=== PATIENT | female | born 1955 | race Caucasian/White ===

== ENCOUNTER 2019-06-28 12:23 | Inpatient (IN) ==
--- NOTE | 2019-06-22 11:53 | Anesthesiology Consultation ---
Date of Service June 22, 2019 Assessment & Plan (1) Encounter for pre-operative examination: Chart Review Chart Review: Acceptable Risk for Surgery and Patient NOT seen in Pre Admission Testing Consults Requested none History Surgery Operation Date: 06/28/19 13:50 Proposed Procedures p Diagnostic Laparoscopic Possible removal Foreign Body, Possible Open - Sara Simms MD Height/Weight Height: 5 ft 8 in Weight: 108.862 kg Allergies Allergy/AdvReac Type Severity Reaction Status Date / Time No Known Allergies Allergy Unknown Verified 06/21/19 14:57 Medications Home Medications Medication Instructions Recorded Confirmed Last Taken aspirin 81 mg tablet,delayed 81 mg PO QAM 07/29/18 06/21/19 Unknown release calcium carbonate-vitamin D3 600 2 tab PO QAM tab 07/29/18 06/21/19 Unknown mg(1,500 mg)-400 unit chewable tablet cholecalciferol (vitamin D3) 1,000 2,000 units PO QAM tab 07/29/18 06/21/19 Unknown unit (25 mcg) tablet doxepin 10 mg capsule 10 mg PO HS cap 07/29/18 06/21/19 Unknown hydrocodone 5 mg-acetaminophen 300 1 - 2 tab PO .Q4-6H PRN tab 07/29/18 06/21/19 Unknown mg tablet promethazine 25 mg tablet 25 mg PO .Q4-6H PRN tab 07/29/18 06/21/19 Unknown gabapentin 300 mg PO HS 06/21/19 06/21/19 Unknown hyoscyamine sulfate [Levsin] 0.125 mg PO BID 06/21/19 06/21/19 Unknown lorazepam 1.5 mg PO HS PRN 06/21/19 06/21/19 Unknown venlafaxine 150 mg PO QAM 06/21/19 06/21/19 Unknown Past Medical History Medical History Osteoarthritis Restless leg syndrome (Chronic) Migraine (Chronic) Depression (Chronic) Anxiety (Chronic) Past Surgical History Surgical History H/O laparoscopy History of surgery on right wrist external H/O repair of right rotator cuff (Chronic) H/O: hysterectomy (Chronic) History of cholecystectomy (Chronic) History of appendectomy (Chronic) History of left hip replacement Hx of colonoscopy Social History Smoking Status: Never smoker Do You Dip or Chew Tobacco: No Hx Alcohol Use: Yes Alcohol type: wine alcohol intake frequency: holidays/special occasions only Hx Substance Use: No substance use type: does not use Testing Laboratory Results Laboratory Tests 04/14/18 11:48 BUN 13 Creatinine 0.95 Electrocardiogram Date: 06/16/19 Findings: + NSR @ (79) and + NSST changes
[~2019-06-28 12:23] MED LIST: CEFAZOLIN 2000MG 2,000 MG/15 ML SYR IV SCH; LR 15ML/HR IV SCH
[2019-06-28] MEDS ORDERED: PROMETHAZINE HCL 12.5 MG in SODIUM CHLORIDE 0.9% 50 ML IV PRN (13:50)
[2019-06-28] MEDS ORDERED: ePHEDrine sulfate 50 MG/ML AMP IV PRN (13:50)
[2019-06-28] MEDS ORDERED: ATROPINE SULFATE 0.1 MG/ML 10ML SYR IV PRN (13:50)
[2019-06-28] MEDS ORDERED: ONDANSETRON INJ 2 MG/ML 2 ML VIAL IV PRN (13:50)
[2019-06-28] MEDS ORDERED: CEFAZOLIN 2000MG 2,000 MG/15 ML SYR IV ONE (14:06)
--- NOTE | 2019-06-28 14:06 | History & Physical Bridge Note ---
Date of Service June 28, 2019 History & Physical Bridge Note I have examined the patient, reviewed the History & Physical and in the interval since the performance of the History & Physical I have noted the following changes of clinical significance: no changes noted
[2019-06-28] MEDS ORDERED: LIDOCAINE HCL 1% 20 ML VIAL ONE (14:11)
[2019-06-28] MEDS ORDERED: BACITRACIN OINT 15 GM TUBE ONE (14:11)
[2019-06-28] MEDS ORDERED: BUPIVACAINE 0.5 % 5 MG/1 ML MPF 30ML VIAL ONE (14:11)
[2019-06-28] MEDS ORDERED: PROPOFOL IV EMULSION 10 MG/ML 20 ML VIAL IV ONE (14:18)
[2019-06-28] MEDS ORDERED: ONDANSETRON INJ 2 MG/ML 2 ML VIAL ONE (14:18)
[2019-06-28] MEDS ORDERED: fentaNYL citrate 100 MCG/2 ML VIAL ONE (14:18)
[2019-06-28] MEDS ORDERED: GLYCOPYRROLATE 0.2 MG/ML VIAL ONE (14:18)
[2019-06-28] MEDS ORDERED: MIDAZOLAM HCL 1 MG/ML 2ML VIAL ONE (14:18)
[2019-06-28] MEDS ORDERED: DEXAMETHASONE SOD INJ 4 MG/ML VIAL ONE (14:18)
[2019-06-28] MEDS ORDERED: LIDOCAINE HCL 2% 2 ML VIAL/AMP(20MG/ML) INFIL ONE (14:18)
[2019-06-28] MEDS ORDERED: NEOSTIGMINE METHYLSULFATE 5 MG/5 ML SYR ONE (14:18)
[2019-06-28] MEDS ORDERED: HYDROmorphone INJ 2 MG/ML SYR/VIAL ONE (15:03)
[2019-06-28] MEDS ORDERED: ROCURONIUM BROMIDE 10 MG/ML 5 ML VIAL ONE ×4 (15:09→15:14)
[2019-06-28] MEDS ORDERED: VANCOMYCIN HCL 1000MG/20ML VIAL ONE (15:33)
[2019-06-28] MEDS ORDERED: KETAMINE HCL INJ 50 MG/ML 10 ML VIAL ONE (16:02)
--- NOTE | 2019-06-28 16:40 | Post Operative Brief Note ---
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
[2019-06-28] MEDS ORDERED: LABETALOL HCL IV 5 MG/ML 20ML IV ONE (17:08)
[2019-06-28] MEDS: LABETALOL HCL IV 5 MG/ML 20ML IV STA ×2 (17:10→18:56)
[2019-06-28] MEDS: fentaNYL citrate 100 MCG/2 ML VIAL IV PRN ×2 (17:13→17:22)
[2019-06-28] MEDS: HYDROmorphone INJ 1 MG/ML SYRINGE IV PRN ×2 (17:30→17:40)
--- NOTE | 2019-06-28 17:41 | Anesthesiology Progress Note ---
Date of Service June 28, 2019 Anesthesia Post Procedure Vital Signs Vital Signs: Temp Pulse Pulse Resp BP BP Pulse Ox 06/28/19 17:30 78 16 145/86 H 96 06/28/19 17:20 77 12 140/92 96 06/28/19 17:10 80 13 172/92 H 98 06/28/19 17:00 98 H 13 172/96 H 98 06/28/19 16:53 37.4 C 105 H 12 175/98 H 98 06/28/19 12:45 36.6 C 88 18 158/110 H 97 Pain Intensity Abdomen: Pain Intensity: 2 Transfer of Care Handoff Completed per policy Notes Mental Status: alert / awake / arousable Patient Amnestic to Procedure: Yes Nausea / Vomiting: adequately controlled Pain: adequately controlled Airway Patency, RR, SpO2: stable & adequate BP & HR: stable & adequate Hydration State: stable & adequate Anesthetic Complications: no major complications apparent and Pt Satisfied with anesthetic care
[2019-06-28] MEDS ORDERED: LORazepam 0.5 MG TAB PO PRN (18:29)
[2019-06-28] MEDS ORDERED: PIPERACILLIN/TAZOBACTAM 3.375 GM in DEXTROSE 5% 100 ML IV SCH (18:29)
[2019-06-28] MEDS ORDERED: HYDROmorphone INJ 1 MG/ML SYRINGE IV PRN (18:29)
[2019-06-28] MEDS ORDERED: PROMETHAZINE HCL 25 MG TAB PO PRN (18:29)
[2019-06-28] MEDS ORDERED: OXYCODONE/ACETAMINOPHEN 5mg/325mg TAB PO PRN (18:29)
[2019-06-28] MEDS ORDERED: LACTATED RINGER'S 1,000 ML IV SCH (18:29)
[2019-06-28] MEDS ORDERED: PIPERACILL/TAZOBAC CONSULT ACTIVE PRN (18:29)
[2019-06-28] MEDS ORDERED: HYDROmorphone INJ 1 MG/ML SYRINGE ONE (18:41)
[2019-06-28] MEDS ORDERED: PIPERACILLIN/TAZOBACTAM 3.375 GM in DEXTROSE 5% 100 ML IV ONE (19:00)
[2019-06-28 19:41] LABS: Creatinine Clr Calc Pharmacy 77.3 ml/min; Est GFR (African American) 72.5; Est GFR (Non-African American) 62.6
[2019-06-28] MEDS: HYDROCODONE/ACETAMOPHEN 5/325MG TAB PO PRN ×2 (20:32→21:16)
[2019-06-28] MEDS ORDERED: GABAPENTIN 300 MG CAP PO SCH (21:00)
[2019-06-28] MEDS ORDERED: DOXEPIN HCL 10 MG CAPSULE PO SCH (21:00)
[2019-06-28] MEDS: HYOSCYAMINE SULFATE 0.125 MG TAB PO SCH (21:18)
--- NOTE | 2019-06-29 01:22 | Operative Report ---
DATE OF OPERATION: 06/28/2019 PREOPERATIVE DIAGNOSIS: Abdominal foreign body. POSTOPERATIVE DIAGNOSIS: Abdominal foreign body. OPERATIONS: Attempted diagnostic laparoscopy converted to open laparotomy, removal of abdominal foreign body and PAULINA drainage x1. SURGEON: Sara Simms MD PLANNING OFFICIAL: Pamela Mcgee PA-C ANESTHESIA: General. ESTIMATED BLOOD LOSS: About 20 mL. FINDINGS: Intra-abdominal wall foreign body. Dexter drainage with abscess. Wound culture sent. COMPLICATIONS: None. INDICATIONS OF THE PROCEDURE: This is a 64-year-old female who had an open cholecystectomy done by other hospital and other surgeon 32 years ago and based on the patient has a long history of diarrhea, the patient had a CT scan diagnosis of foreign body inside the abdominal wall near the liver. The patient required to remove the foreign body. I recommended try to do a diagnostic laparoscopy first and possible open laparotomy and remove the body. I did talk to the patient about the benefits, risks and alternate procedure. I indicated the risks may include but not limited such as infection, bleeding, bile leak, abscess, sepsis, myocardial infarction, deep venous thrombosis, stroke, even or incisional hernia. The patient understands. She signed informed consent and I answered all questions. DETAILS OF PROCEDURE: We brought the patient to the Operating Room, put the patient in supine position. The patient received sequential compression devices on bilateral legs to prevent deep venous thrombosis and also the patient received 2 g Ancef I.V. for prophylactic antibiotic. The patient received general anesthesia without difficulty. The abdomen was appropriately draped in routine sterile fashion. After timeout, I injected the local anesthesia by using 1% lidocaine mixed with 0.5% Marcaine just above umbilicus and then I made a small incision just above umbilicus about 1.5 cm incision, opened fascia, opened peritoneum under direct vision, put a Jordana trocar in, connected to CO2 to create pneumoperitoneum. Flow rate is 6 L per minute. Pressure not more than 14 mmHg. Once we got a nice pneumoperitoneum, we put the camera in, looked around the abdomen which showed a significant scar on the right upper quadrant area and no way to do the laparoscopy to reach of the liver. At this moment, I decided to convert to open procedure. I removed the scope and trocar and closed the incision in fascial layer by using #1 Vicryl [id number] x2 and closed subcutaneous layer by using 2-0 Vicryl interrupted and closed skin by using 4-0 Vicryl. Then, I used the old right upper quadrant incision about 10 cm long, removed the old skin scar and opened the subcutaneous layer, reached the fascial layer, reached muscle and opened fascia and muscle and peritoneum, getting into the abdominal cavity without difficulty and then we found the patient had a foreign body on the top of right lobe of the liver and some part beneath the right lobe of the liver. Once we mobilized the foreign body, we found the patient had a Norma foreign body, the Norma was as long as about 10 cm long. With dissection when we opened the Dexter cavity, we found there was some pus come out. We did send a wound culture and did send the bacterial culture and also there was some yellow clear fluid came out most likely it is a bile leak and once we completely removed the whole Norma because there was a lot of scar around the Norma and then we used a 2-0 Vicryl to close the cavity and I decided to to put a 10 mm PAULINA drainage near the abscess area. Hemostat was obtained. Then, I used 1 g vancomycin with 1 liter saline to flush her abdominal wall. Again, hemostasis was obtained. Then, I used #1 PDS and closed the fascia with muscle layer continuous running and closed the subcutaneous layer by using 2-0 Vicryl continuous running and closed skin by using staple. Then, we put the dressing on. The patient tolerated the procedure well. All instrument, needle and sponge count correct x2 at the end of the case. The patient was transferred to recovery room in a stable condition. Specimen sent to pathology. After procedure, I did show the patient and family member the removed the Norma specimen and informed them about the procedure the patient had. They understand. I attest to the content of the Intraoperative Record and any orders documented therein. Any exceptions are noted below. JULI
[2019-06-29] MEDS ORDERED: PIPERACILLIN/TAZOBACTAM 3.375 GM in DEXTROSE 5% 100 ML IV SCH (02:00)
[2019-06-29] MEDS: HYDROCODONE/ACETAMOPHEN 5/325MG TAB PO PRN ×2 (02:50→08:39)
[2019-06-29 07:34] VITALS: BP 115/75; PULSE 68; TEMP 98.1; O2SAT 94
[2019-06-29 07:45] LABS: Hematocrit (blood only) 36.3 % (37-47); Immature Granulocytes # (auto) 0.03 K/uL (0.00-0.02); Immature Granulocytes % (auto) 0.3 %; Lymphocytes # (auto) 0.92 K/uL (1.2-3.4); Lymphocytes % (auto) 10.2 %; Mean Corpuscular Hemoglobin 28.6 pg (25-34); Mean Corpuscular Hgb Conc 33.1 g/dL (32-36); Mean Corpuscular Volume 86.6 fL (80-100); Mean Platelet Volume 9.5 fL (7.4-10.4); Monocytes # (auto) 0.66 K/uL (0.11-0.59); Monocytes % (auto) 7.3 %; Neutrophils # (auto) 7.41 K/uL (1.4-6.5); Neutrophils % (auto) 82.2 %; Platelet Count 228 K/uL (130-400); RDW Coefficient of Variation 13.3 % (11.5-14.5); RDW Standard Deviation 42.4 fL (36.4-46.3); Red Blood Count 4.19 M/uL (4.2-5.4); White Blood Count 9.02 K/uL (4.8-10.8)
[2019-06-29] MEDS: HYOSCYAMINE SULFATE 0.125 MG TAB PO SCH (08:32)
--- NOTE | 2019-06-29 08:56 | Anesthesiology Progress Note ---
Date of Service June 29, 2019 Anesthesia Post Procedure Vital Signs Vital Signs: Temp Pulse Pulse Resp BP BP Pulse Ox 06/29/19 07:34 36.7 C 68 16 115/75 94 06/29/19 02:33 36.8 C 77 16 108/73 91 06/28/19 23:08 36.8 C 73 16 125/80 92 06/28/19 21:20 36.6 C 78 18 130/79 90 06/28/19 20:17 36.6 C 81 18 125/79 95 06/28/19 19:31 36.7 C 78 18 111/75 94 06/28/19 18:54 36.5 C 81 18 130/85 93 06/28/19 18:20 36.9 C 75 16 143/86 H 92 06/28/19 18:00 79 12 135/86 96 06/28/19 17:50 36.8 C 80 13 141/88 H 95 06/28/19 17:40 74 13 135/95 95 06/28/19 17:30 78 16 145/86 H 96 06/28/19 17:20 77 12 140/92 96 06/28/19 17:10 80 13 172/92 H 98 06/28/19 17:00 98 H 13 172/96 H 98 06/28/19 16:53 37.4 C 105 H 12 175/98 H 98 06/28/19 12:45 36.6 C 88 18 158/110 H 97 Pain Intensity Abdomen: Pain Intensity: 7 Notes Mental Status: alert / awake / arousable Patient Amnestic to Procedure: Yes Nausea / Vomiting: adequately controlled Pain: improving with treatment Airway Patency, RR, SpO2: stable & adequate BP & HR: stable & adequate Hydration State: stable & adequate Anesthetic Complications: no major complications apparent
[2019-06-29] MEDS ORDERED: CALCIUM 600MG + VIT D 400 IU TAB PO SCH (09:00)
[2019-06-29] MEDS ORDERED: HYDROCODONE/ACETAMOPHEN 5/325MG TAB PO PRN (09:00)
[2019-06-29] MEDS ORDERED: CHOLECALCIFEROL 1,000 UNITS TAB PO SCH (09:00)
[2019-06-29] MEDS ORDERED: ASPIRIN 81 MG ECTAB PO SCH (09:00)
[2019-06-29] MEDS ORDERED: VENLAFAXINE HCL XR 150 MG CAPXR PO SCH (09:00)
--- NOTE | 2019-06-29 11:35 | Surgery Progress Note ---
Date of Service June 29, 2019 Assessment & Plan (1) Foreign body: POD # 1 s/p attempted diagnostic laparoscopy with conversion to exploratory laparotomy and removal of foreign body anterior to liver (retained mario drain) -vitals stable, afebrile - post op pain controlled - kesha drain with bloody serosanguienous output, 70 mls - no n/v, tolerating diet Plan: If does okay , plan to discharge home this afternoon discharge instructions will be reviewed prior to discharge Home with PO Cipro/flagyl for 7 days Rx for PO Percocet prn pain kesha drain teaching, home with kesha drain f/u surgical office in 1 week Patient re-evaluate at 1:30 pm Pain moderate but has not had any pain medication since this morning. Pain worse with deep breaths tolerated lunch ready to go home Discharge instructions reviewed f/u surgical office in 1 week kesha drain teach prior to discharge Dr. Simms has seen patient earlier today and agrees with above. Subjective pain controlled with oral pain medication pain at incision site in RUQ no chest pain/shortness of breath urinating but with slow stream tolerated regular diet for breakfast no n/v Physical Exam Constitutional: WD/WN, vitals as above + obese Respiratory: normal respiratory effort Gastrointestinal (Abdomen): Inspection/Auscultation: + abdominal surgical drain present (RUQ kesha drain with bloody serosanguienous output); abdomen not distended Percussion/Palpation: + abdomen tender (RUQ at incision site, appropriate post op) and abdomen soft; no guarding and abdomen not rigid Skin: no rashes, warm and dry + incision (Incisions covered with dry dressings, intact) Psychiatric: A+Ox3, euthymic affect Results & Data Vital Signs (Past 12 Hours) Vital Signs Temp Pulse Resp BP Pulse Ox 06/29/19 07:34 36.7 C 68 16 115/75 94 06/29/19 02:33 36.8 C 77 16 108/73 91 Laboratory Results 06/29/19 06/28/19 06/28/19 Range/Units 07:27 18:49 18:49 WBC 9.02 (4.8-10.8) K/uL RBC 4.19 L (4.2-5.4) M/uL Hgb 12.0 (12.0-16.0) g/dL Hct 36.3 L (37-47) % MCV 86.6 (80-100) fL MCH 28.6 (25-34) pg MCHC 33.1 (32-36) g/dL RDW Std Deviation 42.4 (36.4-46.3) fL RDW Coeff of Manjit 13.3 (11.5-14.5) % Plt Count 228 (130-400) K/uL MPV 9.5 (7.4-10.4) fL Immature Gran % (Auto) 0.3 % Neut % (Auto) 82.2 % Lymph % (Auto) 10.2 % [place] % (Auto) 7.3 % Eos % (Auto) 0.0 % Baso % (Auto) 0.0 % Immature Gran # (Auto) 0.03 H (0.00-0.02) K/uL Neut # (Auto) 7.41 H (1.4-6.5) K/uL Lymph # (Auto) 0.92 L (1.2-3.4) K/uL [place] # (Auto) 0.66 H (0.11-0.59) K/uL Eos # (Auto) 0.00 (0-0.5) K/uL Baso # (Auto) 0.00 (0-0.2) K/uL Creatinine 0.97 (0.6-1.2) mg/dl Est Cr Clr Drug Dosing 77.3 ml/min Est GFR ( Amer) 72.5 Est GFR (Non-Af Amer) 62.6 Hepatitis C Ab Screen Neg (Neg)
--- NOTE | 2019-06-30 15:22 | Discharge Summary ---
Date of Service June 30, 2019 Admission HPI Per Admitting Provider Patient presented to [facility] for elective outpatient diagnostic laparoscopy with possible exploratory laparotomy for retained foreign body from prior open cholecystectomy in 1986 done at another hospital. Patient has had chronic RUQ abdominal pain and diarrhea. Was evaluated by GI who ordered abdominal xray and subsequent CT scan of abdomen and pelvis which showed retained foreign body in RUQ. She was scheduled for the elective procedure with Dr. Simms. Principal Diagnosis Retained foreign body from prior open cholecystectomy in 1986 Discharge Data Allergies Allergy/AdvReac Type Severity Reaction Status Date / Time No Known Allergies Allergy Unknown Verified 06/28/19 12:57 Procedures Performed Operation Date: 06/28/19 14:05 Actual Procedures p Attempted diagnostic laparoscopy(Not Applicable) - Sara Simms MD s Open Exploratory Laparotomy with removal of foreign body(Not Applicable) - Sara Simms MD Hospital Course (1) Foreign body: Patient was taken to operating room for diagnostic laparoscopy possible exploratory laparotomy. Laparoscopy was attempted however unsuccessful as patient had extensive adhesions to the anterior abdominal wall therefore procedure was converted to open. Patient was found to have encapsulated foreign body just anterior to liver under the peritoneum. This was finely dissected with blunt and sharp dissection and proved to be retained mario drain which was encapsulated in the liver. Entire drain was able to be removed. Patient tolerated procedure well and was transferred to recovery and then to medical/surgical floor for post op care. IV fluids, IV Zosyn, IV Morhpine with PO [place] prn pain, IV Zofran prn nausea, kesha drain to bulb suction, activity as tolerated, and diet advanced. Patient was evaluated on POD # 1 , vitals stable, afebrile, post op pain moderate but controlled, minimal kesha drain output. Patient was discharged home in afternoon on POD # 1 in stable condition. Total Time Total Time Spent Total Time Spent (In Minutes): 30 Total Time Includes: Examination of the Patient, Discharge Planning and Medication Reconciliation Discharge Plan Discharge Items Patient Disposition: Home - Self-Care Reason For Visit: Foreign Body Accidentally Left During Procedure Discharge Diagnosis: same Activity: As commented below Non-emergency contact: Surgeon Call non-emergency contact if: your pain is worsening, your pain is unusual for you, your pain is concerning for you, you have a fever, your temperature is above 101, your wound has increased redness, your wound has increased drainage and your wound pain has increased Follow-up/Referrals: Audi Eden MD [Primary Care Provider] - Diet: Regular Addtl Attending Provider Instructions: No heavy lifting over 10 pounds for 6 weeks no strenuous activity, not a lot of bending over no submerging incisions underwater for at least 2 weeks (no bathing, swimming or hot tubs) No driving while taking narcotic pain medication or until you are pain free You may shower and wash hair in 3 days. Sponge bath in the meantime. Would recommend sponge bathing abdomen while you still have drain in place. May remove dressings in 3 days and change daily. Surgical matthew will be removed in office in a few weeks Drain care: Empty drain daily or as needed Record output amount and color Daily walking is encouraged to prevent blood clots from forming in your legs. Use incentive spirometer device to processor helper in deep breathing and to prevent post operative pneumonia You will be given prescription for narcotic pain medication (Percocet) as needed for moderate to severe pain. Take as directed. This medication may cause drowsiness or constipation. You may take extra strength Ibuprofen as needed for mild pain in between doses o f Percocet. You can take 600 mg of Ibuprofen every 6 hours as needed. To avoid constipation while taking narcotic pain medication, you can take OTC stool softener (Colace) daily. Drink plenty of fluids and daily walking to help prevent constipation. Follow-up in surgical office in 1 week, please call office at [phone] to change your appointment from 2 weeks to 1 week. Pending Studies at Discharge: Yes (abscess culture final results) Stand-Alone Forms: [facility] Medications and DC Order Prescriptions: New ciprofloxacin HCl [Cipro] 500 mg tablet 500 mg PO BID Qty: 14 RF: 0 metronidazole [Flagyl] 500 mg tablet 500 mg PO TID Qty: 21 RF: 0 oxycodone-acetaminophen [Percocet] 5-325 mg tablet 1 tab PO Q4H PRN (Reason: pain) Qty: 18 RF: 0 promethazine 25 mg tablet 25 mg PO Q6H PRN (Reason: nausea and vomiting) Qty: 14 RF: 0 Continued doxepin 10 mg capsule 10 mg PO HS RF: 0 aspirin [Adult Aspirin Regimen] 81 mg tablet,delayed release (DR/EC) 81 mg PO QAM RF: 0 cholecalciferol (vitamin D3) 1,000 unit tablet 2,000 units PO QAM RF: 0 calcium carbonate-vitamin D3 [Calcium 600 with Vitamin D3] 600 mg(1,500mg) - 400 unit tablet,chewable 2 tab PO QAM RF: 0 venlafaxine 150 mg Capsule,Extended Release 24hr 150 mg PO QAM RF: 0 lorazepam 0.5 mg Tablet 1.5 mg PO HS PRN (Reason: Anxiety) RF: 0 hyoscyamine sulfate [Levsin] 0.125 mg Tablet 0.125 mg PO BID RF: 0 gabapentin 300 mg Capsule 300 mg PO HS RF: 0 Discontinued promethazine 25 mg tablet 25 mg PO .Q4-6H PRN (Reason: Migraine Headache) RF: 0 hydrocodone-acetaminophen [Vicodin] 5-300 mg tablet 1 - 2 tab PO .Q4-6H PRN (Reason: Pain) RF: 0 Discharge Orders: Discharge Order (Routine); Ordered 06/29/19 Ordered By: Pamela Mcgee Admission Data Admit Date/Time: 06/28/19 16:50 Attending Provider: Sara Simms Admit Provider: Sara Simms Primary Care Provider: Audi Eden Other Interventions: Discharge Summary Assessment (RN) Last Done: 06/29/19 13:34 DC Date/Time DO NOT enter until pt leaves facility: 06/29/19 15:18
== END 2019-06-29 15:18 | disposition home or self-care (01) | DRG 909 ==
LOC: ASU 12:23 → 3N 16:50
DX: F32.9 Major depressive disorder, single episode, unspecified; Z79.82 Long term (current) use of aspirin; Z79.899 Other long term (current) drug therapy; Y83.8 Other surgical procedures as the cause of abnormal reaction of the patient, or of later complication, without mention of misadventure at the time of the procedure; T81.590A Other complications of foreign body accidentally left in body following surgical operation, initial encounter; F41.9 Anxiety disorder, unspecified